=== PATIENT | female | born 1990 | race Hispanic/Latino ===

== ENCOUNTER 2018-02-03 07:42 | Inpatient (IN) | payer MEDICAID, OTHER ==
[2018-02-03 01:14] VITALS: BP 99/64
[~2018-02-03 07:42] MED LIST: MO6B PO; PREN-147 PO; TRAM50TA2 PO
[2018-02-03] MEDS ORDERED: LACTATED RINGERS 1000ML 1,000 ML IV PRN (08:35)
[2018-02-03] MEDS ORDERED: AMPICILLIN 2GM+NS 100ML 100 ML IV SCH (08:45)
[2018-02-03] MEDS ORDERED: AMPICILLIN 1GM+NS 50ML 50 ML IV SCH (08:45)
[2018-02-03] MEDS ORDERED: OXYTOCIN 10 USP UNITS/ML 20 UNIT in LACTATED RINGERS 1000ML 1,000 ML IV SCH (08:45)
[2018-02-03] MEDS: OXYTOCIN-LR 20 UNITS/1000 ML 1,000 ML IV SCH (08:45)
[2018-02-03 08:52] LABS: HEMATOCRIT 38.3 % (36-48); MEAN CORPUSCULAR HEMOGLOBIN 27.7 pg (27.0-33.0); MEAN CORPUSCULAR HGB CONC 34.2 g/dL (32.0-36.0); MEAN CORPUSCULAR VOLUME 81.1 fL (79-99); PLATELET COUNT (AUTO) 200 K/uL (130-400); RED BLOOD CELL COUNT(AUTO) 4.72 MIL/uL (4.00-5.50); WHITE BLOOD COUNT (AUTO) 11.2 K/uL (4.8-10.8)
[2018-02-03] MEDS ORDERED: OXYTOCIN 10 USP UNITS/ML ONE ×2 (08:52→11:38)
[2018-02-03] MEDS ORDERED: MEASLES/MUMPS/RUBELLA VACCINE, LIVE 0.5 ML/VIAL SQ PRN (11:15)
[2018-02-03] MEDS ORDERED: WITCH HAZEL 1 PAD TP PRN (11:15)
[2018-02-03] MEDS ORDERED: BENZOCAINE/LANOLIN/ALOE VERA 60 ML AEROSOL TP PRN (11:15)
[2018-02-03] MEDS ORDERED: ACETAMINOPHEN 325 MG TAB PO PRN (11:15)
[2018-02-03] MEDS ORDERED: DIPH,PERTUSS(ACELL),TET VAC/PF 0.5 ML VIAL IM PRN (11:15)
[2018-02-03] MEDS ORDERED: LANOLIN 30GM OINTMENT TP PRN (11:15)
[2018-02-03 12:41] VITALS: BP 130/71
[2018-02-03] MEDS: IBUPROFEN 800 MG TAB PO PRN ×2 (13:28→23:56)
[2018-02-03 16:03] VITALS: BP 117/77
[2018-02-03 19:43] VITALS: BP 116/73
[2018-02-03] MEDS: DOCUSATE SODIUM 100 MG CAP PO SCH (21:13)
[2018-02-03 23:42] VITALS: BP 99/64
[2018-02-04 03:20] VITALS: BP 99/59
[2018-02-04 05:15] LABS: HEMATOCRIT 32.2 % (36-48); MEAN CORPUSCULAR HEMOGLOBIN 27.8 pg (27.0-33.0); MEAN CORPUSCULAR HGB CONC 34.1 g/dL (32.0-36.0); MEAN CORPUSCULAR VOLUME 81.3 fL (79-99); PLATELET COUNT (AUTO) 200 K/uL (130-400); RED BLOOD CELL COUNT(AUTO) 3.97 MIL/uL (4.00-5.50); RED CELL DISTRIBUTION WIDTH 13.9 % (11.0-15.5); WHITE BLOOD COUNT (AUTO) 11.7 K/uL (4.8-10.8)
[2018-02-04 07:58] VITALS: BP 111/80
[2018-02-04] MEDS: OXYTOCIN-LR 20 UNITS/1000 ML 1,000 ML IV SCH (08:45)
[2018-02-04] MEDS: DOCUSATE SODIUM 100 MG CAP PO SCH (08:56)
[2018-02-04] MEDS: IBUPROFEN 800 MG TAB PO PRN (11:34)
[2018-02-04 11:59] VITALS: BP 133/94
[2018-02-04 12:18] LABS: HEPATITIS Bs ANTIGEN SCREEN P Negative (Negative)
[2018-02-04 15:23] VITALS: BP 121/87
== END 2018-02-04 15:25 | disposition home or self-care (01) | DRG 775 ==
LOC: EDH 07:42 → OBSVTOIN 07:43 → LDH 07:43 → WSH 12:36
PROVIDERS: ADMIT Obstetrics & Gynecology; ATTEND Obstetrics & Gynecology
PROC: 10E0XZZ Delivery of Products of Conception, External Approach (ICD-10-PCS; principal; 2018-02-03)
PROC: 0HQ9XZZ Repair Perineum Skin, External Approach (ICD-10-PCS; 2018-02-03)
PROC: 3E0234Z Introduction of Serum, Toxoid and Vaccine into Muscle, Percutaneous Approach (ICD-10-PCS; 2018-02-03)
DX: O70.0 First degree perineal laceration during delivery (principal); Z23 Encounter for immunization; Z37.0 Single live birth; Z3A.39 39 weeks gestation of pregnancy; Z90.49 Acquired absence of other specified parts of digestive tract
CPT/HCPCS: 36415; 85027; 86592; 86850; 86900; 86901; 87340; 90715; J0290; J2590; J7120

== ENCOUNTER 2018-09-22 11:14 | Emergency (ER) | payer MEDICAID, OTHER ==
[~2018-09-22 11:14] MED LIST changes: -MO6B PO; -TRAM50TA2 PO
[2018-09-22 12:23] LABS: BASOPHILS % (AUTO) 0.6 % (0.0-5.0); EOSINOPHILS % (AUTO) 0.5 % (0.0-8.0); HEMATOCRIT 44.3 % (36-48); LYMPHOCYTES % (AUTO) 15.1 % (21.0-51.0); MEAN CORPUSCULAR HEMOGLOBIN 29.3 pg (27.0-33.0); MEAN CORPUSCULAR VOLUME 86.2 fL (79-99); MONOCYTES % (AUTO) 4.5 % (3.0-13.0); NEUTROPHILS % (AUTO) 79.3 % (40.0-77.0); NUCLEATED RED BLOOD CELLS 0.1 % (0.0-0.19); PLATELET COUNT (AUTO) 232 K/uL (130-400); RED BLOOD CELL COUNT(AUTO) 5.14 MIL/uL (4.00-5.50); RED CELL DISTRIBUTION WIDTH 13.9 % (11.0-15.5); WHITE BLOOD COUNT (AUTO) 11.5 K/uL (4.8-10.8)
[2018-09-22 13:07] LABS: APPEARANCE,URINE Cloudy (CLEAR); BILIRUBIN,URINE Negative (NEGATIVE); COLOR,URINE Yellow (YELLOW); GLUCOSE, URINE (UA) Negative (NEGATIVE); KETONES,URINE Trace mg/dL (NEGATIVE); LEUKOCYTE ESTERASE ,URINE Negative (NEGATIVE); NITRATE,URINE Negative (NEGATIVE); OCCULT BLOOD,URINE Moderate (NEGATIVE); PROTEIN,URINE Trace (NEGATIVE)
[2018-09-22 13:27] LABS: BACTERIA,URINE Rare /HPF (None Seen); RBC,URINE 0-1 /HPF (0-1); WBC,URINE 0-1 /HPF (0-1)
[2018-09-22 13:28] LABS: MUCUS,URINE Few LPF (None Seen); SQUAMOUS EPITHELIAL CELL,UR Moderate /HPF (0-2)
== END 2018-09-22 13:45 | disposition home or self-care (01) ==
LOC: EDH 11:14
DX: O20.0 Threatened abortion (principal); Z90.49 Acquired absence of other specified parts of digestive tract; Z3A.01 Less than 8 weeks gestation of pregnancy
CPT/HCPCS: 36415; 76817; 81001; 84702; 85025; 86900; 86901

== ENCOUNTER 2019-04-25 18:51 | Inpatient (IN) | payer OTHER ==
[~2019-04-25] VITALS: Ht 157.5 cm; Wt 84.8 kg
[2019-04-25 19:15] VITALS: BP 96/54
[2019-04-25 19:28] LABS: APPEARANCE,URINE Clear (CLEAR); BILIRUBIN,URINE Negative (NEGATIVE); COLOR,URINE Yellow (YELLOW); GLUCOSE, URINE (UA) Negative (NEGATIVE); KETONES,URINE Negative (NEGATIVE); LEUKOCYTE ESTERASE ,URINE Moderate (NEGATIVE); NITRATE,URINE Negative (NEGATIVE); OCCULT BLOOD,URINE Negative (NEGATIVE); PH,URINE 7.5 (5.0-8.0); PROTEIN,URINE Trace mg/dL (NEGATIVE)
[2019-04-25 19:36] LABS: AMPHET/METH SCREEN,URINE NEGATIVE (NEGATIVE); BARBITURATE SCREEN, URINE NEGATIVE (NEGATIVE); BENZODIAZEPINES SCREEN,URINE NEGATIVE (NEGATIVE); CANNABINOID SCREEN,URINE NEGATIVE (NEGATIVE); COCAINE SCREEN,URINE NEGATIVE (NEGATIVE); OPIATE SCREEN,URINE NEGATIVE (NEGATIVE); PHENCYCLIDINE SCREEN,URINE NEGATIVE (NEGATIVE)
[2019-04-25 19:46] LABS: BACTERIA,URINE Few /HPF (None Seen); RBC,URINE 0-1 /HPF (0-1)
[2019-04-25] MEDS: LACTATED RINGERS 1000ML 1,000 ML IV SCH (22:59)
[2019-04-26] MEDS: LACTATED RINGERS 1000ML 1,000 ML IV SCH (04:06)
[2019-04-26] MEDS ORDERED: LACTATED RINGERS 1000ML 1,000 ML IV PRN (07:47)
[2019-04-26] MEDS ORDERED: OXYTOCIN-LR 20 UNITS/1000 ML 1,000 ML IV SCH (08:00)
[2019-04-26] MEDS ORDERED: AMPICILLIN 2GM+NS 100ML 100 ML IV SCH (08:00)
[2019-04-26] MEDS ORDERED: AMPICILLIN 1GM+NS 50ML 50 ML IV SCH (08:00)
[2019-04-26 08:41] LABS: HEMATOCRIT 33.7 % (36-48); MEAN CORPUSCULAR HEMOGLOBIN 27.1 pg (27.0-33.0); MEAN CORPUSCULAR VOLUME 82.3 fL (79-99); PLATELET COUNT (AUTO) 175 K/uL (130-400); RED CELL DISTRIBUTION WIDTH 13.4 % (11.0-15.5); WHITE BLOOD COUNT (AUTO) 9.5 K/uL (4.8-10.8)
[2019-04-26 09:10] LABS: RAPID PLASMA REAGIN NONREACTIVE (NONREACTIVE)
[2019-04-26] MEDS ORDERED: OXYTOCIN 10 USP UNITS/ML 20 UNIT in LACTATED RINGERS 1000ML 1,000 ML IV SCH (10:15)
[2019-04-26] MEDS ORDERED: ACETAMINOPHEN-CODEINE 300/30MG TAB PO PRN (11:45)
[2019-04-26] MEDS ORDERED: DIPH,PERTUSS(ACELL),TET VAC/PF 0.5 ML VIAL IM PRN (11:45)
[2019-04-26] MEDS ORDERED: MEASLES/MUMPS/RUBELLA VACCINE, LIVE 0.5 ML/VIAL SQ PRN (11:45)
[2019-04-26] MEDS ORDERED: LANOLIN 30GM OINTMENT TP PRN (11:45)
[2019-04-26] MEDS ORDERED: ACETAMINOPHEN 325 MG TAB PO PRN (11:45)
[2019-04-26] MEDS ORDERED: BENZOCAINE/LANOLIN/ALOE VERA 60 ML AEROSOL TP PRN (11:45)
[2019-04-26] MEDS ORDERED: WITCH HAZEL 1 PAD TP PRN (11:45)
[2019-04-26 13:40] VITALS: BP 104/74
[2019-04-26 16:50] VITALS: BP 106/67
[2019-04-26] MEDS: IBUPROFEN 600 MG TABLET PO PRN (16:53)
[2019-04-26 19:20] VITALS: BP 106/73
[2019-04-26] MEDS: DOCUSATE SODIUM 100 MG CAP PO SCH (21:10)
[2019-04-26 23:20] VITALS: BP 89/53
[2019-04-27 03:25] VITALS: BP 105/62
[2019-04-27 06:13] LABS: HEPATITIS Bs ANTIGEN SCREEN P Negative (Negative)
[2019-04-27] MEDS: IBUPROFEN 600 MG TABLET PO PRN (06:46)
[2019-04-27 07:45] VITALS: BP 106/75
[2019-04-27] MEDS: DOCUSATE SODIUM 100 MG CAP PO SCH (09:02)
[2019-04-27 11:32] VITALS: BP 108/70
--- NOTE | 2019-04-27 13:27 | NUR ---
DROP IN- NO CARE SW called local CPS office. No hx located for pt. Sw met with pt and Jonas Ellington Jr [phone]. Together they have 4 daughters 11,2,1, and NB LUDWIG ELLINGTON. Neither is employed at this time, both independent and drive. Pt has CHIP, WIC and Food stamp assistance. Couple has all basic items for NB and Dr Hood will follow after dc. Pt states she did not get pre care because she had no insurance and it took so long to get approval. Pt states by she got approval and got appt, she started with contractions. Pt denies any hx of abuse, domestic violence, mental health or substance abuse issues. Couple deny need for referral of intervention at this time. Pt had negative UDS at delivery
--- NOTE | 2019-04-27 14:05 | NUR ---
DISCHARGE PT LEFT UNIT VIA WHEELCHAIR, WITH BABY IN ARMS, ACCOMPANIED BY SIGNIFICANT OTHER. DENIED PAIN AND HAD NO COMPLAINTS. BABY STRAPPED IN CAR SEAT. PT AND BABY TRANSPORTED BY PERSONAL VEHICLE.
== END 2019-04-27 14:05 | disposition home or self-care (01) | DRG 807 ==
LOC: EDH 18:51 → OBSVTOIN 19:09 → LDH 19:09 → WSH 04-26 13:20
PROVIDERS: ADMIT Specialist; ATTEND Specialist
PROC: 10E0XZZ Delivery of Products of Conception, External Approach (ICD-10-PCS; principal; 2019-04-26)
PROC: 3E0234Z Introduction of Serum, Toxoid and Vaccine into Muscle, Percutaneous Approach (ICD-10-PCS; 2019-04-26)
PROC: 3E0134Z Introduction of Serum, Toxoid and Vaccine into Subcutaneous Tissue, Percutaneous Approach (ICD-10-PCS; 2019-04-26)
DX: O80 Encounter for full-term uncomplicated delivery (principal); Z37.0 Single live birth; Z23 Encounter for immunization; Z3A.38 38 weeks gestation of pregnancy
CPT/HCPCS: 36415; 76805; 80305; 81001; 85027; 86592; 86701; 86850; 86900; 86901; 87340; 87390; 90707; 90715; 96360; 96361; A4351; G0378; J0290; J2590; J7120

== ENCOUNTER 2020-10-26 17:56 | Observation (INO) | payer MEDICAID, OTHER ==
[~2020-10-26] VITALS: Ht 157.5 cm; Wt 79.8 kg
[2020-10-26 18:37] LABS: APPEARANCE,URINE Cloudy (CLEAR); BILIRUBIN,URINE Small (NEGATIVE); COLOR,URINE Dark Yellow (YELLOW); GLUCOSE, URINE (UA) Negative (NEGATIVE); KETONES,URINE 40 mg/dL (NEGATIVE); LEUKOCYTE ESTERASE ,URINE Small (NEGATIVE); NITRATE,URINE Negative (NEGATIVE); OCCULT BLOOD,URINE Negative (NEGATIVE); PH,URINE 5.5 (5.0-8.0); PROTEIN,URINE Negative (NEGATIVE)
[2020-10-26 18:47] LABS: BACTERIA,URINE Moderate /HPF (None Seen); MUCUS,URINE Few LPF (None Seen); SQUAMOUS EPITHELIAL CELL,UR Many /HPF (0-2)
[2020-10-26] MEDS ORDERED: LACTATED RINGERS 1000ML 1,000 ML IV ONE (19:12)
[2020-10-26] MEDS ORDERED: LACTATED RINGERS 1000ML 1,000 ML IV SCH (19:15)
[2020-10-26 20:07] VITALS: BP 104/57
[2020-10-26 20:20] LABS: AMPHET/METH SCREEN,URINE NEGATIVE (NEGATIVE); BARBITURATE SCREEN, URINE NEGATIVE (NEGATIVE); BENZODIAZEPINES SCREEN,URINE NEGATIVE (NEGATIVE); CANNABINOID SCREEN,URINE NEGATIVE (NEGATIVE); COCAINE SCREEN,URINE NEGATIVE (NEGATIVE); OPIATE SCREEN,URINE NEGATIVE (NEGATIVE); PHENCYCLIDINE SCREEN,URINE NEGATIVE (NEGATIVE)
== END 2020-10-26 21:55 | disposition home or self-care (01) ==
LOC: EDH 17:56 → LDH 17:57
PROVIDERS: ADMIT Internal Medicine; ATTEND Internal Medicine
DX: O62.9 Abnormality of forces of labor, unspecified (principal); Z90.49 Acquired absence of other specified parts of digestive tract; Z3A.38 38 weeks gestation of pregnancy
CPT/HCPCS: 59025; 80305; 81001; 87077; 87088; 87186; 96360; 96361; 99284; G0378 ×4; J7120

== ENCOUNTER 2020-12-18 00:54 | Emergency (ER) | payer OTHER ==
[2020-12-18] MEDS ORDERED: KETOROLAC TROMETHAMINE 30MG/ML ONE (03:35)
[2020-12-18] MEDS ORDERED: HYDROCODONE/ACETAMINOPHEN 10/325 MG TAB ONE (03:35)
== END 2020-12-18 03:46 | disposition home or self-care (01) ==
LOC: EDH 00:54
DX: K02.9 Dental caries, unspecified (principal); K00.6 Disturbances in tooth eruption
CPT/HCPCS: 96372; 99283; J1885

== ENCOUNTER 2020-12-29 04:25 | Emergency (ER) | payer SELFPAY ==
[2020-12-29] MEDS ORDERED: KETOROLAC 30MG VIAL (30MG/ML) ONE (04:38)
[2020-12-29] MEDS ORDERED: AMOX/CLAV 875/125MG TAB PO ONE (04:38)
[2020-12-29] MEDS ORDERED: BUPIVACAINE/PF 0.5% 30ML VIAL ONE (05:06)
== END 2020-12-29 05:23 | disposition home or self-care (01) ==
LOC: EDH 04:25
DX: K04.7 Periapical abscess without sinus (principal); K03.81 Cracked tooth
CPT/HCPCS: 64450; 96372; 99283; J1885; J3490

== ENCOUNTER 2022-07-24 17:37 | Emergency (ER) | payer OTHER ==
[~2022-07-24] VITALS: Ht 152.4 cm; Wt 81.6 kg
[2022-07-24 17:44] VITALS: BP 123/75
[2022-07-24 18:03] LABS: BASOPHILS % (AUTO) 0.4 % (0.0-5.0); HEMATOCRIT 43.7 % (36-48); LYMPHOCYTES % (AUTO) 16.4 % (21.0-51.0); MEAN CORPUSCULAR HEMOGLOBIN 29.6 pg (27.0-33.0); MEAN CORPUSCULAR HGB CONC 34.8 g/dL (32.0-36.0); MONOCYTES % (AUTO) 3.8 % (3.0-13.0); NEUTROPHILS % (AUTO) 76.8 % (40.0-77.0); PLATELET COUNT (AUTO) 244 K/uL (130-400); RED BLOOD CELL COUNT(AUTO) 5.14 MIL/uL (4.00-5.50); RED CELL DISTRIBUTION WIDTH 12.7 % (11.0-15.5); WHITE BLOOD COUNT (AUTO) 14.8 K/uL (4.8-10.8)
[2022-07-24 18:14] LABS: CREATININE 0.6 mg/dL (0.5-1.5); POTASSIUM 3.5 mmol/L (3.5-5.1)
[2022-07-24] MEDS ORDERED: ACETAMINOPHEN 500 MG TABLET PO ONE (18:30)
[2022-07-24 18:37] LABS: APPEARANCE,URINE CLEAR (CLEAR); BILIRUBIN,URINE NEGATIVE (NEGATIVE); COLOR,URINE YELLOW (YELLOW); GLUCOSE, URINE (UA) NEGATIVE (NEGATIVE); KETONES,URINE NEGATIVE (NEGATIVE); LEUKOCYTE ESTERASE ,URINE NEGATIVE (NEGATIVE); NITRATE,URINE NEGATIVE (NEGATIVE); OCCULT BLOOD,URINE TRACE-INTACT (NEGATIVE); PROTEIN,URINE NEGATIVE (NEGATIVE); UROBILINOGEN,URINE 0.2 mg/dL (0.2-1.0)
[2022-07-24 18:47] LABS: ALBUMIN 3.4 g/dL (3.5-5.0); TOTAL PROTEIN, SERUM 6.9 g/dL (6.0-8.3)
[2022-07-24 18:49] LABS: BACTERIA,URINE Rare /HPF (None Seen); RBC,URINE 0-1 /HPF (0-1); WBC,URINE 0-1 /HPF (0-1)
[2022-07-24 18:50] LABS: SQUAMOUS EPITHELIAL CELL,UR Few /HPF (0-2)
[2022-07-24] MEDS ORDERED: ACET-2247 PO (19:42)
== END 2022-07-24 20:00 | disposition home or self-care (01) ==
LOC: EDH 17:37
DX: O26.891 Other specified pregnancy related conditions, first trimester (principal); R10.31 Right lower quadrant pain; Z90.49 Acquired absence of other specified parts of digestive tract
CPT/HCPCS: 36415; 76801; 80053; 81001; 84702; 85025

== ENCOUNTER 2024-09-09 21:09 | Emergency (ER) | payer SELFPAY ==
[~2024-09-09] VITALS: Ht 160 cm; Wt 72.6 kg
[~2024-09-09 21:09] MED LIST changes: +ACET-2247 PO
[2024-09-09 21:11] VITALS: TEMP 99
[2024-09-09 21:33] LABS: BASOPHILS # (AUTO) 0.03 K/uL (0.00-0.20); BASOPHILS % (AUTO) 0.2 % (0.0-5.0); EOSINOPHILS # (AUTO) 0.27 K/uL (0.00-0.70); IMMATURE GRANULOCYTE ABSOLUTE 0.09 K/uL (0-1); LYMPHOCYTES # (AUTO) 2.5 K/uL (1.0-4.8); LYMPHOCYTES % (AUTO) 18.7 % (21.0-51.0); MEAN CORPUSCULAR HEMOGLOBIN 30.4 pg (27.0-33.0); MEAN CORPUSCULAR HGB CONC 34.6 g/dL (32.0-36.0); MEAN CORPUSCULAR VOLUME 87.8 fL (79-99); MONOCYTES # (AUTO) 0.5 K/uL (0.1-1.0); MONOCYTES % (AUTO) 3.9 % (3.0-13.0); NEUTROPHILS # (AUTO) 9.8 K/uL (1.8-7.7); NEUTROPHILS % (AUTO) 74.5 % (40.0-77.0); PLATELET COUNT (AUTO) 215 K/uL (130-400); RED BLOOD CELL COUNT(AUTO) 4.44 MIL/uL (4.00-5.50); RED CELL DISTRIBUTION WIDTH 12.9 % (11.0-15.5); WHITE BLOOD COUNT (AUTO) 13.2 K/uL (4.8-10.8)
[2024-09-09 21:41] LABS: CREATININE 0.6 mg/dL (0.5-1.0); POTASSIUM 3.5 mmol/L (3.5-5.1)
[2024-09-09] MEDS: ondanSETRON 4MG INJ IVP ONE (21:48)
[2024-09-09] MEDS: acetaMINOPHEN 500 MG TABLET PO ONE (21:49)
[2024-09-09 21:51] LABS: ALBUMIN 2.4 g/dL (3.5-5.0); BILIRUBIN,TOTAL 0.1 mg/dL (0.2-1.0)
[2024-09-09 21:57] LABS: INR <= 0.93 (0.85-1.15); PROTHROMBIN TIME 9.9 SEC (9.6-11.6)
[2024-09-09 21:58] LABS: PARTIAL THROMBOPLASTIN TIME 25.6 SEC (26.3-35.5)
[2024-09-10] MEDS ORDERED: ACET-2079 PO (00:37)
[2024-09-10 00:52] VITALS: BP 110/59; PULSE 80; RESP 17; O2SAT 98
[2024-09-10] MEDS: morPHINE 2 MG SYG IVP ONE (01:02)
[2024-09-10 01:04] LABS: APPEARANCE,URINE CLOUDY (CLEAR); BILIRUBIN,URINE NEGATIVE (NEGATIVE); COLOR,URINE LIGHT-YELLOW (YELLOW); GLUCOSE, URINE (UA) NEGATIVE (NEGATIVE); KETONES,URINE NEGATIVE (NEGATIVE); LEUKOCYTE ESTERASE ,URINE NEGATIVE Leu/uL (NEGATIVE); NITRATE,URINE NEGATIVE (NEGATIVE); OCCULT BLOOD,URINE NEGATIVE (NEGATIVE); PH,URINE 7.5 (5.0-8.0); PROTEIN,URINE NEGATIVE (NEGATIVE); UROBILINOGEN,URINE 0.2 mg/dL (0.2-1.0)
[2024-09-10 01:06] LABS: ADD UA MICROSCOPIC YES
[2024-09-10 01:07] LABS: BACTERIA,URINE FEW /HPF (None Seen); SQUAMOUS EPITHELIAL CELL,UR FEW /HPF (0-2); WBC,URINE 0-1 /HPF (0-1)
== END 2024-09-10 01:19 | disposition home or self-care (01) ==
LOC: EDH 21:09
DX: O99.891 Other specified diseases and conditions complicating pregnancy (principal); M26.602 Left temporomandibular joint disorder, unspecified; G89.29 Other chronic pain; R51.9 Headache, unspecified; R10.2 Pelvic and perineal pain; Z79.899 Other long term (current) drug therapy; Z90.49 Acquired absence of other specified parts of digestive tract; Z3A.14 14 weeks gestation of pregnancy
CPT/HCPCS: 99285; 96374; 70450; 71045; 84484; 80053; 84703; 84702; 85025; 85610; 85730; 86850; 86900; 86901; 82948; 81001; 36415; 93005; J2405